=== PATIENT | male | born 2000 | race Asian ===

== ENCOUNTER 2019-06-05 17:32 | Emergency (ER) | payer SELFPAY ==
[~2019-06-05] VITALS: Ht 170.2 cm; Wt 54.0 kg
--- NOTE | 2019-06-05 17:40 | NUR ---
PT AMBULATED TO BED 08.
[2019-06-05 17:41] VITALS: BP 122/87
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
[2019-06-05] MEDS ORDERED: LIDOCAINE 2% 1000 MG/50 ML VIAL INJ ONE (18:30)
[2019-06-05] MEDS ORDERED: ACETAMINOPHEN 325 MG TAB PO ONE (18:30)
[2019-06-05] MEDS ORDERED: BACITRACIN OINT 500 UNITS/GM PKT TP ONE (19:30)
[2019-06-05 19:41] VITALS: BP 108/63
== END 2019-06-05 19:41 | disposition home or self-care (01) ==
LOC: MED 17:32
DX: S01.81XA Laceration without foreign body of other part of head, initial encounter (principal); V00.131A Fall from skateboard, initial encounter; Y93.51 Activity, roller skating (inline) and skateboarding; Y92.331 Roller skating rink as the place of occurrence of the external cause; Y99.8 Other external cause status
CPT/HCPCS: 12011; 99283; J2001